=== PATIENT | female | born 1930 | race Hispanic/Latino ===

== ENCOUNTER 2017-08-07 14:59 | Observation (INO) | payer MEDICARE, OTHER ==
[2017-08-07 15:26] VITALS: BMI 33.7
--- NOTE | 2017-08-07 16:02 | ED PDOC ---
Arrival/HPI - General Chief Complaint: Abnormal Labs Time Seen by Provider: 08/07/17 15:07 Historian: Patient, Family - History of Present Illness Narrative History of Present Illness (Text): 08/07/17 15:50 Chinyere Bernstein is an 87 year old female whose past medical history includes hypertension, diabetes, and CVA, who presents to the emergency department complaining of iron level deficiency. According to family, patient's PMD referred her to a paving contractor, Dr. Jane, whom she met one day ago but due to her insurance they decided to come into the emergency department since her iron level was dropping. Patient denies chest pain, shortness of breath, headache, fever, or other complaints. PMD: Dr. Ray Drafter Landscape: Dr. Jane Time/Duration: 24 hours Symptom Onset: Sudden Symptom Course: Unchanged Context: Home Past Medical History - Provider Review Nursing Documentation Reviewed: Yes - Patient History Narrative Patient History: Hx Thalassemia minor; no previous transfusions - Reproductive Menopause: No - Cardiac Hx Hypertension: Yes - Pulmonary Hx Respiratory Disorders: No - Neurological HX Cerebrovascular Accident: Yes (2002) - Endocrine/Metabolic Hx Diabetes Mellitus Type 2: Yes - Psychiatric Hx Substance Use: No - Surgical History Hx Cholecystectomy: Yes - Anesthesia Hx Anesthesia: Yes Hx Anesthesia Reactions: No Hx Malignant Hyperthermia: No Family/Social History - Physician Review Nursing Documentation Reviewed: Yes Family/Social History: Unknown Family HX Smoking Status: Never Smoked Hx Alcohol Use: No Hx Substance Use: No Allergies/Home Meds Allergies/Adverse Reactions: Allergies Penicillins Allergy (Verified 08/07/17 15:16) RASH Home Medications: Home Meds Medication Instructions Recorded Confirmed Aspirin [Aspirin Chewable] 81 mg PO DAILY 03/05/17 08/07/17 Clopidogrel [Plavix] 75 mg PO DAILY 03/05/17 08/07/17 Insulin Human NPH [Humulin N] 20 unit SQ BID 03/05/17 08/07/17 Lisinopril [Zestril] 10 mg PO DAILY 03/05/17 08/07/17 MetFORMIN [glucOPHAGE] 1,000 mg PO BID 03/05/17 08/07/17 Cholecalciferol (Vitamin D3) 1,000 mcg PO DAILY 08/05/17 08/07/17 [Vitamin D3] Cyanocobalamin [Vitamin B12 1000 1,000 mcg PO DAILY 08/05/17 08/07/17 mcg Tab] Folic Acid 1 mg PO DAILY 08/05/17 08/07/17 Melatonin [Melatin] 3 mg PO DAILY 08/07/17 08/07/17 Review of Systems - Physician Review All systems were reviewed & negative as marked: Yes - Review of Systems Constitutional: absent: Fevers Respiratory: absent: SOB Cardiovascular: absent: Chest Pain Hemo/Lymphatic: Other (iron deficiency low) Physical Exam Vital Signs Reviewed: Yes Vital Signs Temp Pulse Resp BP Pulse Ox 08/07/17 19:04 75 19 135/84 98 08/07/17 17:29 139/80 08/07/17 15:23 98.1 F 78 18 143/84 100 Temperature: Afebrile Blood Pressure: Normal Pulse: Regular Respiratory Rate: Normal Appearance: Positive for: Well-Appearing, Non-Toxic, Comfortable Pain Distress: None Mental Status: Positive for: Alert and Oriented X 3 - Systems Exam Head: Present: Atraumatic, Normocephalic Pupils: Present: PERRL Extroacular Muscles: Present: EOMI Conjunctiva: Present: Normal Cardiovascular: Present: Murmurs (systolic murmur at LSB) Neurological: Present: GCS=15, CN II-XII Intact, Speech Normal Skin: Present: Warm, Dry, Normal Color. No: Rashes Psychiatric: Present: Alert, Oriented x 3, Normal Insight, Normal Concentration Medical Decision Making ED Course and Treatment: 08/07/17 Impression: 87 year old female complaining of iron deficiency Plan: -- Labs -- Reassess and disposition Progress Notes: 08/07/17 16:38 Awake, alert, ambulatory to bathroom and asymptomatic. Patient denies SOB or chest pain. Family very clearly denies cardiac history or symptoms related to active cardiac disease. Previous Hx CVA, DM, HTN, and thalassemia minor. Patient is maintained on aspirin and plavix. Stools are Heme negative. Patient has adequate oral intake and is tolerating oral fluids and nutrition. There is no reason either by history or exam to suspect hemoconcentration. Hemoglobin has been slowly drifting downward over a number of weeks and was 7.8 at [facility] ED 2 days ago. Patient refused admission at that time and outpatient evaluation and treatment was pursued but unable to be scheduled. Patient was advised to return to ER for re-evaluation, and transfusion, if indicated. Exam is stable. BP lying 148/72. Standing 156/76 (neg hemodynamic changes). Exam as noted in ohysical exam. Hgb today is 8.2gm/dl. Discussed with Dr Mera who requests observation for further evaluation and transfusion. As patient does not meet criteria at this time for transfusion (Hgb 8.2; no cardiac hx-acute or chronic; and is asymptomatic), there is no indication for emergent transfusion. Hematology will determine and order transfusion per evaluation. Discussed with both Dr. Mera and Dr Russo. 08/07/17 16:56 - Lab Interpretations Lab Results: 08/07/17 15:50 Lab Results 08/07/17 15:50: Blood Type O POSITIVE, Antibody Screen Negative, Crossmatch See Detail, BBK History Checked No verified bt 08/07/17 15:50: PT 11.9, INR 1.04 08/07/17 15:50: WBC 10.3, RBC 4.16, Hgb 8.2 L, Hct 26.8 L, MCV 64.4 L, MCH 19.7 L, MCHC 30.6 L, RDW 16.1 H, Plt Count 331, MPV 10.7, Gran % 52.5, Lymph % (Auto ) 38.9 H, [place] % (Auto) 5.9, Eos % (Auto) 2.0, Baso % (Auto) 0.7, Gran # 5.38, Lymph # (Auto) 4.0 H, [place] # (Auto) 0.6, Eos # (Auto) 0.2, Baso # (Auto) 0.07 I have reviewed the lab results: Yes - Medication Orders Current Medication Orders: Aspirin (Ecotrin) 81 mg PO DAILY [facility] Last Admin: 08/08/17 09:07 Dose: 81 mg Clopidogrel Bisulfate (Plavix) 75 mg PO DAILY [facility] Last Admin: 08/08/17 09:08 Dose: 75 mg Folic Acid (Folic Acid) 1 mg PO DAILY [facility] Last Admin: 08/08/17 09:07 Dose: 1 mg Sodium Chloride (Sodium Chloride 0.9%) 1,000 mls @ 50 mls/hr IV .Q20H [facility] Last Admin: 08/07/17 17:33 Dose: 50 mls/hr eMAR Start Stop Document 08/07/17 17:33 SF (Rec: 08/07/17 17:33 [id number]) Intravenous Solution Start Date 08/07/17 Start Time 17:33 End Date 08/08/17 Insulin Human Regular (Humulin R Low) 0 units SC ACHS [facility] PRN Reason: Protocol Last Admin: 08/08/17 09:08 Dose: 1 units MAR Blood Glucose Document 08/08/17 09:08 [facility] (Rec: 08/08/17 09:08 [id number] Blood Glucose Finger Stick Blood Glucose (70-120) 177 Subcutaneous Administrations Document 08/08/17 09:08 [facility] (Rec: 08/08/17 09:08 [id number]) Charges for Administration # of Subcutaneous Administrations 1 Lisinopril (Zestril) 10 mg PO DAILY [facility] Last Admin: 08/08/17 09:09 Dose: 10 mg MAR Pulse and Blood Pressure Document 08/08/17 09:09 [facility] (Rec: 08/08/17 09:09 [id number]) Pulse Pulse Rate (60-90) 77 Blood Pressure Blood Pressure (100/60-150/90) 147/88 Pantoprazole Sodium (Protonix Ec Tab) 20 mg PO DAILY [facility] Last Admin: 08/08/17 09:09 Dose: 20 mg Discontinued Medications Acetaminophen (Tylenol 325mg Tab) 650 mg PO ONCE ONE Stop: 08/07/17 17:06 Last Admin: 08/07/17 17:30 Dose: 650 mg MAR Pain/Vitals Document 08/07/17 17:30 [facility] (Rec: 08/07/17 17:30 [id number] Pain Reassessment Is This A Pain ReAssessment? Yes Sleep Is patient sleeping during reassessment? No Presence of Pain Presence of Pain Yes Diphenhydramine HCl (Benadryl) 25 mg PO ONCE ONE Stop: 08/07/17 17:06 Last Admin: 08/07/17 17:30 Dose: 25 mg Furosemide (Lasix) 20 mg IVP ONCE ONE Stop: 08/07/17 17:06 Last Admin: 08/07/17 17:29 Dose: 20 mg MAR Blood Pressure Document 08/07/17 17:29 SF (Rec: 08/07/17 17:30 [id number] Blood Pressure Blood Pressure (100/60-150/90) 139/80 IVP Administration Document 08/07/17 17:29 SF (Rec: 08/07/17 17:30 [id number] Charges for Administration # of IVP Administrations 1 Hydrocortisone Sodium Succinate (Solu-Cortef) 100 mg IV ONCE ONE Stop: 08/07/17 17:06 Last Admin: 08/07/17 17:29 Dose: 100 mg eMAR Start Stop Document 08/07/17 17:29 SF (Rec: 08/07/17 17:29 [id number] Intravenous Solution Start Date 08/07/17 Start Time 17:29 End Date 08/07/17 Sodium Chloride (Sodium Chloride 0.9%) 1,000 mls @ 100 mls/hr IV .Q10H [facility] Last Admin: 08/07/17 19:39 Dose: - Scribe Statement The provider has reviewed the documentation as recorded by the Scribe Lisha Newton Provider Scribe Attestation: All medical record entries made by the Scribe were at my direction and personally dictated by me. I have reviewed the chart and agree that the record accurately reflects my personal performance of the history, physical exam, medical decision making, and the department course for this patient. I have also personally directed, reviewed, and agree with the discharge instructions and disposition. Disposition/Present on Arrival - Present on Arrival Any Indicators Present on Arrival: No History of DVT/PE: No History of Uncontrolled Diabetes: No Urinary Catheter: No History of Decub. Ulcer: No History Surgical Site Infection Following: None - Disposition Have Diagnosis and Disposition been Completed?: Yes Diagnosis: Iron (Fe) deficiency anemia Disposition: HOSPITALIZED Disposition Time: 17:00 Patient Plan: Observation Condition: STABLE
[2017-08-07 16:15] LABS: BASO # 0.07 K/mm3 (0.0-2.0); BASO % 0.7 % (0.0-3.0); EOS # 0.2 (0.0-0.7); GRAN # 5.38 (1.4-6.5); GRAN % 52.5 % (50.0-68.0); HEMOGLOBIN 8.2 g/dL (12.0-16.0); LYMPH % 38.9 % (22.0-35.0); MEAN CELL VOLUME 64.4 fl (80.0-105.0); MEAN CORPUSCULAR HEMOGLOBIN 19.7 pg (25.0-35.0); MEAN CORPUSCULAR HGB CONC 30.6 g/dl (31.0-37.0); MEAN PLATELET VOLUME 10.7 fl (7.0-11.0); MONO # 0.6 (0.1-0.6); MONO % 5.9 % (1.0-6.0); RBC 4.16 10^6/uL (3.5-6.1); RED CELL DISTRIBUTION WIDTH 16.1 % (11.5-14.5); WHITE BLOOD COUNT 10.3 10^3/ul (4.5-11.0)
[2017-08-07 16:29] LABS: INR 1.04 (0.93-1.08); PROTHROMBIN TIME 11.9 SECONDS (9.4-12.5)
[2017-08-07] MEDS ORDERED: Famotidine 20mg/50ml 20 MG/50 ML BAG IVPB STA (16:48)
[2017-08-07] MEDS ORDERED: Sodium Chloride 0.9% 1,000 ML IV SCH ×2 (17:00→17:01)
--- NOTE | 2017-08-07 17:11 | RAD ---
HISTORY: anemia COMPARISON: No prior. FINDINGS: LUNGS: No active pulmonary disease. PLEURA: No significant pleural effusion identified, no pneumothorax apparent. CARDIOVASCULAR: Normal. OSSEOUS STRUCTURES: No significant abnormalities. VISUALIZED UPPER ABDOMEN: Normal. OTHER FINDINGS: None. IMPRESSION: No active disease.
[2017-08-07] MEDS: Pantoprazole 20 mg EC Tab PO SCH (17:31)
--- NOTE | 2017-08-07 18:57 | CARD ---
APPROVED REPORT EKG Measurement Heart [id number] VT [id number] [id number] <Conclusion> Sinus rhythm with premature atrial complexes Septal infarct, age undetermined ST & T wave abnormality, consider lateral ischemia Abnormal ECG
[2017-08-07] MEDS: Insulin Reg-LOW-Coverage SC SCH (21:54)
--- NOTE | 2017-08-07 23:04 | CP.PCM.PN ---
Subjective - Date & Time of Evaluation Date of Evaluation: 08/07/17 Time of Evaluation: 22:56 - Subjective Subjective: S:It was requested to me to get a consent for platelet transfusion. Patient has no acute symptom. Medical record was reviewed. O: Last Vital Signs 3 Temp 98.3 F 08/07/17 22:09 Pulse 70 08/07/17 22:09 Resp 18 08/07/17 22:09 BP 139/72 08/07/17 22:09 Pulse Ox 98 08/07/17 19:04 Awake,alert , not in distress. LUNGS:Normal breathing pattern. A: Thrombocytopenia. P:A consent for platelet transfusion was obtained from daughter after explaining in detail about transfusion reactrion in presence of patient's primary nurse. Objective - Vital Signs/Intake and Output Vital Signs (last 24 hours): Temp Pulse Resp BP Pulse Ox 98.3 F 70 18 139/72 98 08/07/17 22:09 08/07/17 22:09 08/07/17 22:09 08/07/17 22:09 08/07/17 19:04 Intake and Output: 08/07/17 08/08/17 18:59 06:59 Intake Total 120 Balance 120 - Medications Medications: Current Medications Aspirin (Ecotrin) 81 mg PO DAILY [facility] Clopidogrel Bisulfate (Plavix) 75 mg PO DAILY [facility] Folic Acid (Folic Acid) 1 mg PO DAILY [facility] Sodium Chloride (Sodium Chloride 0.9%) 1,000 mls @ 50 mls/hr IV .Q20H [facility] Last Admin: 08/07/17 17:33 Dose: 50 mls/hr Insulin Human Regular (Humulin R Low) 0 units SC ACHS [facility] PRN Reason: Protocol Last Admin: 08/07/17 21:54 Dose: Not Given Lisinopril (Zestril) 10 mg PO DAILY [facility] Pantoprazole Sodium (Protonix Ec Tab) 20 mg PO DAILY [facility] Last Admin: 08/07/17 17:31 Dose: 20 mg - Labs Labs: PT 11.9 SECONDS (9.4-12.5) 08/07/17 15:50 INR 1.04 (0.93-1.08) 08/07/17 15:50
--- NOTE | 2017-08-08 04:30 | HP ---
DATE OF EXAM: 08/07/[address] Leon. CHIEF COMPLAINT: Severe anemia. HISTORY OF PRESENT ILLNESS: The patient is an 87-year-old female seen lying, awake in bed with her daughters at the bedside, now being transfused packed red blood cells as per Dr. Leon's recommendation after the patient was found to have significant drop in her hemoglobin. The patient's blood tests were known from hospital visits on the computer system from 03/05/2017, hemoglobin at that time was 11.2. Her hemoglobin was done again two days prior, 08/05/2017, with hemoglobin of 7.8, with a drop from 11.2 in 03/05/2017 to 7.8 in 08/05/2017. With this, the patient reports occasional weakness, with the patient known to have suffered a CVA in 2002 and continues to take Plavix and aspirin as anticoagulant medicines. She denies hematuria, hematochezia or melena; however, her mentation is compromised by her history of stroke with possible mild early dementia. She also suffers from diabetes mellitus along with hypertension with ASCVD probably associated. With this, the patient is otherwise in no acute distress, admitted by the emergency room as her insurance company would not allow the patient to be transfused as an outpatient with the consideration for significant morbidity and mortality where she not admitted for evaluation in an emergency room urgent setting. With this, the patient was noted to have signed against medical advice on 08/05/2017, when she was advised at that time to be admitted to the hospital for evaluation with a misunderstanding with daughters and the staff at the facility she was seeking medical care, and therefore, she signed against medical advice. However now, she has agreed to be admitted for evaluation as indicated. ALLERGIES: TO PENICILLIN. MEDICATIONS: Include Humulin insulin, metformin, Plavix, lisinopril, aspirin, vitamin D, vitamin B12, folic acid. PAST MEDICAL HISTORY: Significant for CVA in [facility] in 2002, with other significant history from Dr. Ray that of diabetes mellitus, hyperlipidemia, hypertension with left-sided weakness, obesity, intolerance to statins and thalassemia minor ?. FAMILY HISTORY AND SOCIAL HISTORY: Nonsmoker, nonethanolic. Two daughters alive and well at bedside. Two sisters alive and well, one sister dying at 57 years old from ovarian cancer, with her father dying of stomach cancer and her mother dying of old age at 98 years old. REVIEW OF SYSTEMS: The 12-point review of systems was done, which was negative to questioning except for items mentioned in the history of present illness. PHYSICAL EXAMINATION: VITAL SIGNS: Temperature 98.4, pulse 72, respirations 18, blood pressure 144/77, pulse ox 98%. HEENT: Unremarkable. NECK: Supple. HEART: Regular rate. LUNGS: Clear. ABDOMEN: Protuberant, obese, nontender. EXTREMITIES: Faint +1 edema at the feet bilaterally. NEUROLOGIC: Awake and alert. SKIN: Warm and dry. The patient has had an EKG done. It was read as sinus rhythm with PACs, septal infarct age-indeterminate, ST-T wave abnormality consistent with lateral ischemia. The patient had a chest x-ray done earlier today, it was read as no active disease. LABORATORY DATA: The patient's labs were done here at [facility] with a white blood cell count of 10.3, hemoglobin 8.2, hematocrit of 26.8, platelet count of 331,000. Again, her labs from 2 days prior, on 08/05/2017, showed a hemoglobin of 7.8. This may be attributed to heme constriction, as the patient does take insulin, metformin, Plavix, lisinopril, aspirin, and was not drinking extra liquids in the recent past. Her INR is 1.04. Her chemistry shows a non-fasting glucose of 100. ASSESSMENT: Severe symptomatic anemia - rule out gastrointestinal bleed, diabetes mellitus - insulin dependent, history of cerebrovascular accident with anticoagulation - on Plavix and aspirin, hypertension, obesity - status post cerebrovascular accident with statin intolerance, thalassemia minor history ?. PLAN: The plan for this patient, after conversation with Dr. Leon, is to admit to the [facility] for evaluation of her severe anemia. We will type and cross with 2 units of packed red blood cells and transfuse slowly over 3 hours each unit of blood. We will continue her present medical regimen. We will add Protonix 20 mg daily. We will continue hypertensive medication. We will ask for consult with Dr. Hutchison, gastroenterology internal control consultant, to see further evaluation with workup as indicated. We will ask for stool for occult blood. With the patient, a complex patient with a comprehensive medically necessary and appropriate visit carried out in excess of 1 hour's time at bedside with the family and the patient, answering questions to their satisfaction, with the patient's diet to be consistent of carbohydrate and prognosis for this patient is guarded. The patient will be monitored clinically with labs in the morning. Romero Alexander MD
[2017-08-08 06:25] LABS: BASO # 0.06 K/mm3 (0.0-2.0); BASO % 0.6 % (0.0-3.0); EOS # 0.1 (0.0-0.7); EOS % 0.7 % (1.5-5.0); GRAN # 5.14 (1.4-6.5); GRAN % 54.8 % (50.0-68.0); HEMOGLOBIN 9.3 g/dL (12.0-16.0); LYMPH # 3.4 (1.2-3.4); LYMPH % 36.6 % (22.0-35.0); MEAN CORPUSCULAR HEMOGLOBIN 21.5 pg (25.0-35.0); MEAN CORPUSCULAR HGB CONC 31.8 g/dl (31.0-37.0); MEAN PLATELET VOLUME 11.1 fl (7.0-11.0); MONO # 0.7 (0.1-0.6); MONO % 7.3 % (1.0-6.0); RBC 4.33 10^6/uL (3.5-6.1); RED CELL DISTRIBUTION WIDTH 18.2 % (11.5-14.5); WHITE BLOOD COUNT 9.4 10^3/ul (4.5-11.0)
[2017-08-08 06:28] LABS: MEAN CELL VOLUME 67.4 fl (80.0-105.0)
[2017-08-08 06:42] LABS: ALB/GLOB RATIO 1.3 (1.1-1.8); ALBUMIN 3.4 g/dL (3.0-4.8); ALT/SGPT 25 U/L (7-56); AST/SGOT 18 U/L (14-36); BLOOD UREA NITROGEN 18 mg/dL (7-21); CALCIUM 9.5 mg/dL (8.4-10.5); GFR AFRICAN-AMERICAN > 60; GFR NON-AFRICAN AMERICAN > 60
[2017-08-08] MEDS: Insulin Reg-LOW-Coverage SC SCH ×3 (09:08→17:03)
[2017-08-08] MEDS: Pantoprazole 20 mg EC Tab PO SCH (09:09)
[2017-08-08 10:22] VITALS: RESP 20
[2017-08-08 11:05] LABS: BASO # 0.05 K/mm3 (0.0-2.0); BASO % 0.6 % (0.0-3.0); EOS # 0.1 (0.0-0.7); GRAN # 5.19 (1.4-6.5); GRAN % 58.4 % (50.0-68.0); HEMOGLOBIN 9.6 g/dL (12.0-16.0); LYMPH % 33.5 % (22.0-35.0); MEAN CELL VOLUME 67.4 fl (80.0-105.0); MEAN CORPUSCULAR HEMOGLOBIN 21.6 pg (25.0-35.0); MEAN PLATELET VOLUME 10.4 fl (7.0-11.0); MONO # 0.6 (0.1-0.6); MONO % 6.5 % (1.0-6.0); RBC 4.45 10^6/uL (3.5-6.1); RED CELL DISTRIBUTION WIDTH 18.2 % (11.5-14.5); WHITE BLOOD COUNT 8.9 10^3/ul (4.5-11.0)
[2017-08-08] MEDS ORDERED: Barium Sulfate Susp 2.1% w/v, 2.0% w/w 450 mL Bottle PO ONE (13:00)
--- NOTE | 2017-08-08 13:52 | CP.PCM.CON ---
History of Present Illness - History of Present Illness History of Present Illness: Seen and examined at earlier today, chart reviewed, daughter Vibha at bedside contributing to patient history, patient mainly speak Greenlandic but does speak some Turkish. Request for GI leonor anemia. HPI: This is a 87-year-old female with a past medical history of CVA back in 2002 on Plavix and aspirin, diabetes mellitus, hypertension and as per daughter Thalasemia, they were sent to the emergency for further evaluation for decreasing hemaglobin. Back in 2017 hgb was over 11, progressivly decreasing. The patient and family was advise to be admitted to hospital for further evaluation, insurance would not authorize outpateint transfusion. They went to [facility] and daughter reported that there was a misunderstanding and signed out AMA on 08/05/17. The patient came to [facility] for further evalation and on admission hgb found to be 8.7 , received yesterday 2 units PRBC and hemoglobin went up to 9.3. The patient has no reports of hematochezia, melena , or blood per rectum . They do not endorse any change in bowel habits, and in fact the daughter states patient is normally constipated and does not take any laxatives has BM every third day. Recently patient change dietary intake and has been going regularly. No reports of nausea, vomiting, abdominal pain, or dyspepsia. No reports of weight loss or loss of appetite. Never had EGD or colon. PMH: CVA w/ left sided weakness, on Aspirin and Plavix, DM, Obesity, HLD,HTN, Thalassemia minor PSH: cholecystectomy Allergies: PCN MEDS: reviewed as per MAR, significant for Plavix/aspirin Family HX: sister: Ovarian cancer, father: Stomach cancer Social HX: denies smoking, etoh, illicit drugs ROS: system reviewed, w/ positive findings, see HPI Past Patient History - Past Social History Smoking Status: Never Smoked - CARDIAC Hx Hypertension: Yes - PULMONARY Hx Respiratory Disorders: No - NEUROLOGICAL HX Cerebrovascular Accident: Yes (2002) - HEENT Hx HEENT Problems: No - RENAL Hx Chronic Kidney Disease: No - ENDOCRINE/METABOLIC Hx Diabetes Mellitus Type 2: Yes - HEMATOLOGICAL/ONCOLOGICAL Hx Blood Disorders: Yes Hx Anemia: Yes - INTEGUMENTARY Hx Dermatological Problems: No - MUSCULOSKELETAL/RHEUMATOLOGICAL Hx Musculoskeletal Disorders: Yes Hx Falls: Yes - GASTROINTESTINAL Hx Gastrointestinal Disorders: No - GENITOURINARY/GYNECOLOGICAL Hx Genitourinary Disorders: No - PSYCHIATRIC Hx Substance Use: No - SURGICAL HISTORY Hx Cholecystectomy: Yes - ANESTHESIA Hx Anesthesia: Yes Hx Anesthesia Reactions: No Hx Malignant Hyperthermia: No Meds Allergies/Adverse Reactions: Allergies Allergy/AdvReac Type Severity Reaction Status Date / Time Penicillins Allergy RASH Verified 08/07/17 15:16 - Medications Medications: Current Medications Aspirin (Ecotrin) 81 mg PO DAILY [facility] Last Admin: 08/08/17 09:07 Dose: 81 mg Clopidogrel Bisulfate (Plavix) 75 mg PO DAILY [facility] Last Admin: 08/08/17 09:08 Dose: 75 mg Folic Acid (Folic Acid) 1 mg PO DAILY [facility] Last Admin: 08/08/17 09:07 Dose: 1 mg Sodium Chloride (Sodium Chloride 0.9%) 1,000 mls @ 50 mls/hr IV .Q20H [facility] Last Admin: 08/07/17 17:33 Dose: 50 mls/hr Insulin Human Regular (Humulin R Low) 0 units SC ACHS [facility] PRN Reason: Protocol Last Admin: 08/08/17 11:50 Dose: Not Given Lisinopril (Zestril) 10 mg PO DAILY [facility] Last Admin: 08/08/17 09:09 Dose: 10 mg Pantoprazole Sodium (Protonix Ec Tab) 20 mg PO DAILY [facility] Last Admin: 08/08/17 09:09 Dose: 20 mg Physical Exam - Constitutional Appears: No Acute Distress - Head Exam Head Exam: NORMOCEPHALIC - Eye Exam Eye Exam: Normal appearance. absent: Scleral icterus - ENT Exam ENT Exam: Mucous Membranes Moist - Neck Exam Neck exam: Positive for: Normal Inspection - Respiratory Exam Respiratory Exam: Decreased Breath Sounds, NORMAL BREATHING PATTERN. absent: Rales, Wheezes, Respiratory Distress - Cardiovascular Exam Cardiovascular Exam: +S1, +S2 - GI/Abdominal Exam GI & Abdominal Exam: Distended (softly obese), Normal Bowel Sounds, Soft. absent: Guarding, Organomegaly, Rebound, Tenderness - Rectal Exam Rectal Exam: Hemorrhoids. absent: Bloody Stool Additional comments: (+) brown stool, (+) hemorrhoids,no blood - Extremities Exam Extremities exam: Positive for: pedal edema (trace), pedal pulses present. Negative for: calf tenderness - Neurological Exam Neurological exam: Alert, Oriented x3 - Skin Skin Exam: Dry, Warm Results - Vital Signs Recent Vital Signs: Last Vital Signs Temp 98.1 F 08/08/17 06:00 Pulse 77 08/08/17 09:09 Resp 20 08/08/17 06:00 BP 147/88 08/08/17 09:09 Pulse Ox 98 08/08/17 06:00 - Labs Result Diagrams: 08/08/17 11:00 08/08/17 05:30 Labs: Laboratory Results - last 24 hr 08/07/17 08/07/17 08/07/17 17:28 18:06 21:33 WBC RBC Hgb Hct MCV MCH MCHC RDW Plt Count MPV Gran % Lymph % (Auto) [place] % (Auto) Eos % (Auto) Baso % (Auto) Gran # Lymph # (Auto) [place] # (Auto) Eos # (Auto) Baso # (Auto) Sodium Potassium Chloride Carbon Dioxide Anion Gap BUN Creatinine Est GFR ( Amer) Est GFR (Non-Af Amer) POC Glucose (mg/dL) 100 225 H Random Glucose Calcium Total Bilirubin AST ALT Alkaline Phosphatase Total Protein Albumin Globulin Albumin/Globulin Ratio Blood Type Confirm O POSITIVE 08/08/17 08/08/17 08/08/17 05:30 05:30 07:41 WBC 9.4 RBC 4.33 Hgb 9.3 L Hct 29.2 L MCV 67.4 L D MCH 21.5 L MCHC 31.8 RDW 18.2 H Plt Count 279 MPV 11.1 H Gran % 54.8 Lymph % (Auto) 36.6 H [place] % (Auto) 7.3 H Eos % (Auto) 0.7 L Baso % (Auto) 0.6 Gran # 5.14 Lymph # (Auto) 3.4 [place] # (Auto) 0.7 H Eos # (Auto) 0.1 Baso # (Auto) 0.06 Sodium 138 Potassium 4.1 Chloride 104 Carbon Dioxide 25 Anion Gap 13 BUN 18 Creatinine 0.7 Est GFR ( Amer) > 60 Est GFR (Non-Af Amer) > 60 POC Glucose (mg/dL) 177 H Random Glucose 214 H Calcium 9.5 Total Bilirubin 1.0 AST 18 ALT 25 Alkaline Phosphatase 44 Total Protein 6.2 Albumin 3.4 Globulin 2.7 Albumin/Globulin Ratio 1.3 Blood Type Confirm 08/08/17 08/08/17 11:00 11:10 WBC 8.9 RBC 4.45 Hgb 9.6 L Hct 30.0 L MCV 67.4 L MCH 21.6 L MCHC 32.0 RDW 18.2 H Plt Count 268 MPV 10.4 Gran % 58.4 Lymph % (Auto) 33.5 [place] % (Auto) 6.5 H Eos % (Auto) 1.0 L Baso % (Auto) 0.6 Gran # 5.19 Lymph # (Auto) 3.0 [place] # (Auto) 0.6 Eos # (Auto) 0.1 Baso # (Auto) 0.05 Sodium Potassium Chloride Carbon Dioxide Anion Gap BUN Creatinine Est GFR ( Amer) Est GFR (Non-Af Amer) POC Glucose (mg/dL) 187 H Random Glucose Calcium Total Bilirubin AST ALT Alkaline Phosphatase Total Protein Albumin Globulin Albumin/Globulin Ratio Blood Type Confirm Assessment & Plan - Assessment and Plan (Free Text) Assessment: ASSESSMENT: Anemia, r/o GI bleed, PUD, angiodysplasia, malignancy H/O CVA on plavix, aspirin DM Obesity Thalassemia PLAN: trend H/H and monitor for overt GIB continue Protonix 20 mg daily Recommend to hold Plavix but continue Aspirin order ct scan of the abdomen/ pelvis with only oral contrast, pt had Metformin yesterday. on Folic acid resume diet after ct scan . discuss in detail with daughter Vibha at bedside, patient would benefit from EGD and colon r/o GIB, PUD, malignancy, typically patient to be off Plavix 5-7 days, can continue aspirin hx of CVA, can tentatively plan for beginning next week (?Friday) or if patient/ family insistent to be discharge can give a date to come back for procedure. Will discuss w/ hematology. Thank you for this consult and for allowing us to participate in your patient care, further recommendation based upon clinical course. Seen and discussed w/ Dr. Hutchison.
--- NOTE | 2017-08-08 15:35 | CP.PCM.PN ---
Subjective - Date & Time of Evaluation Date of Evaluation: 08/08/17 Time of Evaluation: 07:40 - Subjective Subjective: Margarito Knight D.O. PGY-2, Progress Note 87 year old female with a PMH of CVA, DM, HTN, HLD, and thalassemia minor who [place] [facility] [place] she was found to have anemia. Patient was seen and examined at bedside with susane present. Patient having no discomfort at this time. Denies any N/V/D or otherwise. No fevers or chills. No overnight events. Very anxious as is daughter. Objective - Vital Signs/Intake and Output Vital Signs (last 24 hours): Temp Pulse Resp BP Pulse Ox 98.1 F 77 20 147/88 98 08/08/17 06:00 08/08/17 09:09 08/08/17 06:00 08/08/17 09:09 08/08/17 06:00 Intake and Output: 08/08/17 08/08/17 06:59 18:59 Intake Total 794 240 Balance 794 240 - Medications Medications: Current Medications Aspirin (Ecotrin) 81 mg PO DAILY [facility] Last Admin: 08/08/17 09:07 Dose: 81 mg Clopidogrel Bisulfate (Plavix) 75 mg PO DAILY [facility] Last Admin: 08/08/17 09:08 Dose: 75 mg Folic Acid (Folic Acid) 1 mg PO DAILY [facility] Last Admin: 08/08/17 09:07 Dose: 1 mg Sodium Chloride (Sodium Chloride 0.9%) 1,000 mls @ 50 mls/hr IV .Q20H [facility] Last Admin: 08/07/17 17:33 Dose: 50 mls/hr Insulin Human Regular (Humulin R Low) 0 units SC ACHS [facility] PRN Reason: Protocol Last Admin: 08/08/17 11:50 Dose: Not Given Lisinopril (Zestril) 10 mg PO DAILY [facility] Last Admin: 08/08/17 09:09 Dose: 10 mg Pantoprazole Sodium (Protonix Ec Tab) 20 mg PO DAILY [facility] Last Admin: 08/08/17 09:09 Dose: 20 mg - Labs Labs: 08/08/17 11:00 08/08/17 05:30 PT 11.9 SECONDS (9.4-12.5) 08/07/17 15:50 INR 1.04 (0.93-1.08) 08/07/17 15:50 - Constitutional Appears: Non-toxic, Agitated - Head Exam Head Exam: ATRAUMATIC, NORMOCEPHALIC - Eye Exam Eye Exam: Normal appearance - ENT Exam ENT Exam: Mucous Membranes Moist, Normal Oropharynx - Neck Exam Neck Exam: Normal Inspection - Respiratory Exam Respiratory Exam: Clear to Ausculation Bilateral. absent: Rales, Wheezes - Cardiovascular Exam Cardiovascular Exam: +S1, +S2 - GI/Abdominal Exam GI & Abdominal Exam: Soft, Normal Bowel Sounds. absent: Tenderness - Extremities Exam Extremities Exam: absent: Calf Tenderness - Neurological Exam Neurological Exam: Alert, Oriented x3 - Psychiatric Exam Psychiatric exam: Agitated - Skin Skin Exam: Dry, Warm Assessment and Plan - Assessment and Plan (Free Text) Assessment: 87 year old female with a PMH of CVA, DM, HTN, HLD, and thalassemia minor who [place] [facility] [place] she was found to have anemia. Plan: Worsening anemia in setting of thalassemia minor HTN DM CVA Thalassemia minor S/p 2U PRBC which went from 8.2 to 9.3, not appropriate response, then 9.6 Repeat in the AM GI consulted for possible GI bleed as source of worsening anemia Hemodynamically stable Continue RISS and accuchecks Continue home medications SCDs for DVT ppx Discussed with attending physician
[2017-08-08 18:33] VITALS: BP 182/100; PULSE 81; TEMP 98.5; O2SAT 95
--- NOTE | 2017-08-08 18:51 | CON ---
DATE: 08/07/2017 NEUROLOGY CONSULTATION CHIEF COMPLAINT: Patient has a history of CVA and needs to hold aspirin and Plavix to get into colonoscopy and endoscopy for anemia. HISTORY OF PRESENT ILLNESS: This 87-year-old woman with history of CVA, type 2 diabetes mellitus, hypertension, hyperlipidemia and thalassemia minor, who presented to [facility] with generalized weakness, found to have anemia with hemoglobin of 8.2, which status post PRBCs of 2 units and it is now 9.3 and then repeat hemoglobin of 9.6, was consulted because GI needs to do a colonoscopy and endoscopy for evaluation for anemia and therefore needs to hold aspirin and Plavix, which is okay from a Neurology stand point for about a week. Otherwise, she is moving all extremities, no focal neurological deficits seen. She has some underlying peripheral neuropathy on neuro examination. She is very anxious as well as her daughter. REVIEW OF SYSTEMS: A 14-point review of system negative except for the HPI. ALLERGIES: NO KNOWN DRUG ALLERGIES. SOCIAL HISTORY: No illicit drug use, smoking or EtOH abuse. FAMILY HISTORY: Noncontributory. MEDICATIONS: Reviewed via nurse's reconciliation sheet. PAST MEDICAL HISTORY: As above. LABORATORY DATA: Hemoglobin of 9.6, hematocrit of 30.0, platelet count of 268. Sodium is 138, potassium 4.1, chloride of 104, carbon dioxide 25, BUN of 18, creatinine 0.7, and random glucose of 214. ASSESSMENT AND PLAN: This is an 87-year-old woman with past medical history of type 2 diabetes mellitus, cerebrovascular accident, hypertension, hyperlipidemia, thalassemia minor with a CT head showed no acute intracranial abnormality, found to have generalized weakness, found to have: 1. Acute anemia in the setting of thalassemia minor with a hemoglobin of 8.2 and now it is 9.6 after transfusion. I was consulted to give okay to hold aspirin and Plavix to do the GI workup colonoscopy and endoscopy for anemia. At this time, I would recommend that aspirin and Plavix can be held for a week to evaluate for cause for sudden onset of anemia. 2. She has diabetic peripheral neuropathy. Recommend PT/OT evaluation and continue with GI workup once again. Thank you for this consult. Venu Oro MD [facility] # [phone]
--- NOTE | 2017-08-08 18:56 | CT ---
PROCEDURE: CT Abdomen and Pelvis without IV contrast HISTORY: anemia COMPARISON: None. TECHNIQUE: Contrast dose: No IV contrast was given. Axial and reformatted coronal and sagittal CT images of the abdomen and pelvis were obtained after oral contrast administration. Radiation dose: Total exam DLP = 773.71 mGy-cm. This CT exam was performed using one or more of the following dose reduction techniques: Automated exposure control, adjustment of the mA and/or kV according to patient size, and/or use of iterative reconstruction technique. FINDINGS: LOWER THORAX: No evidence of acute pathology at the lung bases. Pleural thickening noted at the right chest base. The heart is mildly enlarged. LIVER: Unremarkable. No gross lesion or ductal dilatation. GALLBLADDER AND BILE DUCTS: Not visualized likely due to prior cholecystectomy. The CBD is prominent in size likely due to prior cholecystectomy. PANCREAS: Very small pancreas noted. SPLEEN: Unremarkable. ADRENALS: Unremarkable. No mass. KIDNEYS AND URETERS: Unremarkable. No hydronephrosis. No solid mass. VASCULATURE: Unremarkable. No aortic aneurysm. BOWEL: No evidence of bowel obstruction or obstructing mass lesion. No CT evidence of colitis or enteritis. APPENDIX: No evidence of appendicitis. PERITONEUM: Unremarkable. No free fluid. No free air. LYMPH NODES: Unremarkable. No enlarged lymph nodes. BLADDER: Low position of the bladder noted suspicious for cystocele. REPRODUCTIVE: There is a 3.7 x 2.5 centimeter low-attenuation lesion at the left adnexa. Given the patient's age the possibility of neoplasm should be excluded. BONES: Diffuse osteopenia is noted. Moderate anterior spondylolisthesis of L4 relative to L5 is seen. OTHER FINDINGS: None. IMPRESSION: 3.7 x 2.5 centimeter low-attenuation lesion at the left adnexa. Further assessment by ultrasound or MRI is suggested as the possibility of neoplasm should be excluded. No evidence of other suspicious lesion in the abdomen and pelvis. No evidence of acute pathology.
--- NOTE | 2017-08-09 02:44 | DS ---
For Dr. Leon. SUBJECTIVE: The patient is an 87-year-old female with mild dementia status post CVA in the past, on Plavix and aspirin for a significant period of time with suspected GI bleed with transfusion of 2 units of packed cells with good effect, with a hemoglobin today of 9.6 with a previous hemoglobin of 7.8, three days prior. The patient was seen by Dr. Hutchison, gastrointestinal oracle application consultant with myself present with family in the room with the patient to have a CT scan of the abdomen and pelvis done prior to discharge home at the family's request as the patient is not comfortable spending another night here in the hospital despite recommendation to do so to follow up on her labs to see that there was no significant drop of her hemoglobin after the transfusion. With this, the patient's follow up will be with Dr. Hutchison after she is off the Plavix for approximately 5 to 7 days. This was after evaluation by Dr. Oro, Neurology who recommends stopping the Plavix in anticipation of the GI testing as per Dr. Hutchison. She will continue her aspirin and she will also be given a prescription, which was called into her drug store for Protonix 40 mg daily. This was all explained to the family at the bedside including her granddaughter, who is a nurse in [employer] [facility] [employer] [facility] [employer]. Despite recommendations for the patient to stay for labs to be drawn in the morning and to follow up after transfusion, the family is insistent on the patient being discharged and we will comply as the patient appears to be in no acute distress with her beneficial effects of the transfusion are paramount as we have bought some time before the evaluation can be done. The patient is otherwise to have a CBC done in approximately 3 to 5 days' time or earlier and to come back to any facility including [facility] for immediate followup should she develop any symptoms of significance. The patient is at present asymptomatic, feeling better after the transfusion. The progress note for today's visit will otherwise contain other information regarding the patient's plan and visit for today. Otherwise, the patient will be discharged in anticipation of early follow up next week for EGD, colonoscopy with biopsy as indicated, off the Plavix approximately 5 to [address] Oro and also with me. Patient to continue present medical regimen, otherwise including aspirin for now. Again with Dr. Leon, she may come in to the office for repeat labs at any time, however she lives in [facility] and if necessary the prescription was given to have the labs done at a local lab drawing station with the results to be send to us. Dr. Hutchison was present in the room and made arrangements for her to have her other testing as indicated. This is a complex patient with a comprehensive medically necessary and appropriate visit carried out in excess of 80 minutes in [id number] time with the patient, the patient's family, the consultants as above, calling the pharmacy with all of the questions answered to their satisfaction, with the recommendations for adherence to follow up as above. We await for the results of the CAT scan. This will be forwarded to the patient once the results are known. Romero Alexander MD
== END 2017-08-08 20:10 | disposition home or self-care (01) ==
LOC: ED 14:59 → ERH 16:50 → 3RNO 20:22
PROVIDERS: ADMIT Family Medicine; ATTEND Family Medicine
DX: D50.9 Iron deficiency anemia, unspecified (principal); D56.3 Thalassemia minor; D69.6 Thrombocytopenia, unspecified; E11.42 Type 2 diabetes mellitus with diabetic polyneuropathy; E66.9 Obesity, unspecified; E78.5 Hyperlipidemia, unspecified; F03.90 Unspecified dementia, unspecified severity, without behavioral disturbance, psychotic disturbance, mood disturbance, and anxiety; I10 Essential (primary) hypertension; I25.10 Atherosclerotic heart disease of native coronary artery without angina pectoris; I69.354 Hemiplegia and hemiparesis following cerebral infarction affecting left non-dominant side; Z79.02 Long term (current) use of antithrombotics/antiplatelets; Z79.4 Long term (current) use of insulin; Z80.0 Family history of malignant neoplasm of digestive organs; Z80.41 Family history of malignant neoplasm of ovary; Z90.49 Acquired absence of other specified parts of digestive tract; Z88.0 Allergy status to penicillin; R40.2412 Glasgow coma scale score 13-15, at arrival to emergency department
CPT/HCPCS: 36415; 36430; 71045; 74176; 80053; 82948; 85025; 85610; 86850; 86900; 86920; 93005; 96374; 99285; G0378; J1720; J1940; J7040; P9016